=== PATIENT | female | born 1950 | race Caucasian/White ===

== ENCOUNTER 2019-09-25 10:43 | Emergency (ER) | payer MEDICARE, MEDICAID, SELFPAY ==
[2019-09-25 11:10] VITALS: BP 153/73; PULSE 78; RESP 18; TEMP 36.9; O2SAT 100
--- NOTE | 2019-09-25 11:26 | DI.RAD.S_ITS ---
PROCEDURE: XR SHOULDER RT MIN 2V INDICATIONS: swelling post fall, limited ROM TECHNIQUE: 2 views of the shoulder were acquired. COMPARISON: None. FINDINGS: Bones: Comminuted, displaced fracture of the right humeral head and neck. No dislocation. No suspicious bony lesions. Visualized ribs appear intact. Soft tissues: No suspicious soft tissue calcifications. IMPRESSION: Comminuted, displaced fracture of the right humeral head and neck. Dictated by: Norman Alexis M.D. on 09/25/2019 at 12:29 Approved by: Norman Alexis M.D. on 09/25/2019 at 12:30
--- NOTE | 2019-09-25 11:27 | DI.RAD.S_ITS ---
PROCEDURE: XR HUMERUS RT 2V INDICATIONS: swelling post fall, limited ROM TECHNIQUE: AP and lateral views of the humerus were acquired. COMPARISON: None. FINDINGS: Bones: Comminuted, displaced fracture of the humeral head and neck. No dislocations. No suspicious bony lesions. Soft tissues: No suspicious soft tissue calcifications. IMPRESSION: Comminuted, displaced fracture of the right humeral head and neck. Dictated by: Norman Alexis M.D. on 09/25/2019 at 12:29 Approved by: Norman Alexis M.D. on 09/25/2019 at 12:29
--- NOTE | 2019-09-25 11:54 | ED.UPPEXIN ---
HPI - Extremity Injury (Upper) General Chief Complaint: Extremity Injury, Upper Stated Complaint: fell last night R shoulder possible dislocation Time Seen by Provider: 09/25/19 11:46 Source: patient Mode of arrival: Ambulatory Limitations: no limitations History of Present Illness HPI narrative: This is a 68-year-old female comes to the emergency department complaint of right shoulder pain. Patient states she tripped over some of her small floor rugs at home and fell she thinks onto her shoulder but she also hit head she states she has little bit of bruising Um. She did not lose consciousness. Her significant other was present. She have a lot of pain initially so she went to bed and this morning had increased pain. She denies weakness numbness in the hand or right upper extremity she is not able to lift or move it. She denies any neck or back pain. No chest pain, shortness of breath. No nausea, no vomiting, no other GI or urinary symptoms. Patient states no aspirin or other blood thinners. Patient states she has a history of cirrhosis and hepatitis-C which has been on treated. She states that she takes medication for reflux but no other medications regularly. She states that she was told they thought it was secondary to infection. Patient also states she had duodenal ulcer that ?exploded? in the past. Related Data Previous Rx's Medication Instructions Recorded oxycodone 5 mg PO QID PRN #20 tab 09/25/19 Allergies Allergy/AdvReac Type Severity Reaction Status Date / Time Penicillins Allergy Verified 09/25/19 11:23 Review of Systems Review of Systems ROS Unobtainable: All systems reviewed & are unremarkable except as noted in HPI and below Patient History Medical History Advanced cirrhosis of liver (Acute) Social History Smoking Status: Current some day smoker Smoking Status: Current some day smoker alcohol intake frequency: 0-2 drinks per day Substance Use Type: does not use Exam Narrative Exam Narrative: GEN: Patient appears in mild distress. HEAD: Patient has mild ecchymosis of the left brow, no raccoon/Tang sign. NECK: Nontender, painless range of motion, trachea midline Negative Nexus criteria, there is no mid line tenderness, distracting injury, altered mental status, neuro deficit, recent EtOH. EYES: PERRLA, EOMI ENT: External inspection normal other than described above, trachea is midline, TM's are normal no hemotypanum, Nares are clear, no septal hematoma, no dental or oral injury, airway is normal and with normal occlusion, No bony tenderness RESP: Chest is nontender and has symmetric movement, no ecchymosis, breath sounds are normal no crackles, wheezes or rales CVS: Heart sounds are normal, no murmur noted, No JVD. ABG/GI: Nontender, soft, normal bowel sounds, no distention, no organomegaly, pelvic rock is negative NEURO: Oriented AOx3, neuro is grossly intact, sensation and motor is normal all 4 extremities moving, cranial nerves II through XII are intact, GCS is 15 PSYCH: Normal mood and affect SKIN: Intact, warm and dry, no crepitus and without decubitus BACK: No CVA tenderness, no vertebral tenderness, no step-off's, no crepitus EXT: Patient is tender over the left shoulder. She does have some deformity and swelling. No ecchymosis is appreciated. 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 2+ radial pulse bilaterally. Normal sensation throughout. Cap refill less than 2 seconds in all 10 fingers, hips are nontender, no pedal edema, normal color and temperature, normal range of motion of extremities with normal tendon exam except for left shoulder, 2+ pulses in all four extremities Initial Vital Signs Initial Vital Signs: Vital Signs Temperature 98.4 F 09/25/19 11:10 Pulse Rate 78 09/25/19 11:10 Respiratory Rate 18 09/25/19 11:10 Blood Pressure 153/73 H 09/25/19 11:10 Pulse Oximetry 100 09/25/19 11:10 Scores GCS [place] coma scale eye opening: Spontaneous [place] coma scale verbal response: Orientated [place] coma scale motor response: Obey commands [place] coma scale total score: 15 Course Orders Ordered: ED Orders 09/25/19 11:26 XR shoulder RT min 2V Stat 09/25/19 11:27 XR humerus RT 2V Stat Discontinued Medications Oxycodone HCl (Percolone) 5 mg PO NOW ONE Stop: 09/25/19 12:54 Last Admin: 09/25/19 13:12 Dose: 5 mg Documented by: YOSVANY Vital Signs Vital signs: Vital Signs - 8 hr 09/25/19 11:10 09/25/19 12:22 09/25/19 13:00 Temperature 98.4 F Pulse Rate 78 72 74 Pulse Rate [Right Radial] 78 Respiratory Rate 18 15 19 Blood Pressure 153/73 H Blood Pressure [Left Arm] 131/81 143/68 H Pulse Oximetry 100 98 MDM - Extremity Injury (Upper) Imaging Data right shoulder xray: Radiologist's Impression: [address] [address] XRay Report Signed Patient: Ariadna Williamson#: [id number] : [id number]:[id number] Age/Sex: 68 / FDate of Service: 09/25/19 Loc: ED Accession Number: [id number] Procedure: XR shoulder RT min 2V Ordering Provider: Mimi Tim D.O. PROCEDURE: XR SHOULDER RT MIN 2V INDICATIONS: swelling post fall, limited ROM TECHNIQUE: 2 views of the shoulder were acquired. COMPARISON: None. FINDINGS: Bones: Comminuted, displaced fracture of the right humeral head and neck. No dislocation. No suspicious bony lesions. Visualized ribs appear intact. Soft tissues: No suspicious soft tissue calcifications. IMPRESSION: Comminuted, displaced fracture of the right humeral head and neck. Dictated by: Norman Alexis M.D. on 09/25/2019 at 12:29 Approved by: Norman Alexis M.D. on 09/25/2019 at 12:30 humerus xray: Radiologist's Impression: [address] [address] XRay Report Signed Patient: Ariadna Williamson#: [id number] : [id number]:[id number] Age/Sex: 68 / FDate of Service: 09/25/19 Loc: ED Accession Number: [id number] Procedure: XR humerus RT 2V Ordering Provider: Mimi Tim D.O. PROCEDURE: XR HUMERUS RT 2V INDICATIONS: swelling post fall, limited ROM TECHNIQUE: AP and lateral views of the humerus were acquired. COMPARISON: None. FINDINGS: Bones: Comminuted, displaced fracture of the humeral head and neck. No dislocations. No suspicious bony lesions. Soft tissues: No suspicious soft tissue calcifications. IMPRESSION: Comminuted, displaced fracture of the right humeral head and neck. Dictated by: Norman Alexis M.D. on 09/25/2019 at 12:29 Approved by: Norman Alexis M.D. on 09/25/2019 at 12:29 [facility] Narrative Medical decision making narrative: SPoke with Dr. Vega, he recommends sling and swath with pain medication and follow-up with the office. No intervention at this time. They will follow with the patient. Discussed with patient she is comfortable with the plan strict return precautions. Discharge Plan Departure Patient Disposition: Home Clinical Impression: Closed right humeral fracture Qualifiers: Encounter type: initial encounter Discharge Date/Time: 09/25/19 13:45 Instructions: DI for Humeral Fracture Activity Restrictions/Additional Instructions: Follow-up with Orthopedic surgery in the next 5-7 days. Call for an appointment. Take pain medication as prescribed, this medication can make you sleepy do not drive, perform hazardous activities or make any major decisions while taking this medication. Splint Care: Keep splint clean and dry. Elevated affected body part to decrease swelling. OK to use ice pack on the affected body part. Use for 15-20 minutes each time, for 5-6x per day. If you develop worsening pain, numbness, tingling, discoloration of the affected body part, loosen or adjust the sling/splint, and either see your doctor for an urgent re-assessment, or return to the Emergency Department. Return to the Emergency Department for any new or worsening symptoms, altered mental status, new confusion, sudden severe headaches, persistent vomiting, lightheadedness or passing out, new neck, back pain, new numbness, tingling or weakness or other new or concerning symptoms. Prescriptions: New oxycodone 5 mg tablet 5 mg PO QID PRN (Reason: pain) Qty: 20 RF: 0 Referrals: Kamari Vega MD [Physician] -
[2019-09-25 12:22] VITALS: BP 131/81; PULSE 72; PULSE 78; RESP 15
--- NOTE | 2019-09-25 12:25 | PC.NURSE ---
Pt was walking last night and tripped over throw rug landing on right side. c/o right shoulder pain w/ visible bruising to posterior right shoulder. Pain w/ movement. Right arm in position of comfort at this time. Also noted a bruise to left eye area. Srinivasan LOC. Pt is not on thinners.
[2019-09-25 13:00] VITALS: BP 143/68; PULSE 74; RESP 19; O2SAT 98
[2019-09-25] MEDS: OXYCODONE IR 5 MG TABLET PO (13:12)
== END 2019-09-25 13:45 | disposition home or self-care (01) ==
PROVIDERS: Emergency Provider Emergency Medicine
DX: S42.301A Unspecified fracture of shaft of humerus, right arm, initial encounter for closed fracture (principal); W01.0XXA Fall on same level from slipping, tripping and stumbling without subsequent striking against object, initial encounter
CPT/HCPCS: 73030; 73060; 99283; 99284

== ENCOUNTER → 2022-05-26 12:12 | Outpatient (CLI) | payer MEDICARE, MEDICAID, SELFPAY ==
--- NOTE | 2022-05-26 12:16 | DI.MRI.S_ITS ---
PROCEDURE: MR BREAST BI WO/W CON INDICATIONS: Malignant neoplasm of unspecified site TECHNIQUE: The patient was placed prone in a dedicated breast imaging coil. Precontrast axial STIR and 3D FLASH without fat saturation sequences were obtained. Both before and after bolus injection of contrast, sequential 1-minute axial 3D FLASH with fat saturation sequences for 3 time points, with subtraction images and maximum intensity projections (MIP's) generated. Delayed sagittal FLASH images with fat saturation were also obtained. Computer-aided detection, including computer algorithm analysis of MRI image data for lesion detection and characterization, pharmacokinetic analysis, with further physician review for interpretation, was performed. COMPARISON: None. FINDINGS: Image quality: Degraded by motion artifact and suboptimal [id number]. In addition, the patient did not tolerate further imaging and sagittal views of the left breast were not acquired. There is mild background parenchymal enhancement. Right breast: There is an irregular mass with heterogeneous enhancement and irregular margins the 12 o'clock position the right breast measuring 17 x 14 x 9 millimeters, with internal biopsy clip, about 3 centimeters from the nipple. At the 7 o'clock position of the right breast about 5 centimeters from nipple, there is an irregular mass with heterogeneous enhancement and irregular margins measuring 13 x 12 x 14 millimeters. At the 10 o'clock position of the right breast about 2 centimeters from the nipple, there is an irregular mass with heterogeneous enhancement and regular margins measuring 13 x 10 x 8 millimeters. No suspicious internal mammary or axillary adenopathy is seen. Left breast: Limited evaluation due to lack of sagittal images and motion degradation. The patient did not tolerate further imaging. No suspicious mass, focus, or non mass enhancement is identified corresponding to previously noted group calcifications on mammogram. No suspicious axillary adenopathy is seen. Miscellaneous: Partially visualized non breast findings without significant pathology. Evaluation is limited as above. IMPRESSION: Suspected multi centric disease in the right breast. If confirmation is needed, second-look ultrasound could be used to target the 7 o'clock and/or to 10 o'clock masses. No suspicious findings in the left breast. No correlate seen to calcifications seen on mammography, which could not be targeted on prior stereotactic biopsy. Evaluation is degraded by motion artifact, suboptimal [id number] and lack of left breast sagittal images. BIRADS 6 COMMENT: The imaging literature indicates that a negative contrast breast MRI examination has a high sensitivity and a moderate specificity for detecting and excluding invasive carcinomas to a detection threshold of 3-5 mm; nonetheless, appropriate clinical and mammographic follow-up are recommended. MRI is not sensitive for detecting DCIS (ductal carcinoma in situ) and may not detect large invasive neoplasms that show only minimal enhancement such as mucinous carcinoma. If there are suspicious calcifications or clinically worrisome palpable masses, then biopsy should still be considered. Invasive neoplasms can be hidden by co-existent and benign enhancement caused by mastitis, hormone therapy effects, radiation therapy, , and recent biopsy or surgery. False positive examinations can occur in a number of circumstances, including breasts that have recently been subject to invasive procedures and those that contain atypical ductal hyperplasia, hormonally stimulated glandular tissue, fat necrosis, or radial scars. Dictated by: Ky Doe M.D. on 05/26/2022 at 16:24 Approved by: Ky Doe M.D. on 05/26/2022 at 16:39
== END ==
PROVIDERS: PCP Nurse Practitioner Family; Referring Provider Nurse Practitioner Family; Visit Provider Nurse Practitioner Family
DX: C50.919 Malignant neoplasm of unspecified site of unspecified female breast (principal); N63.15 Unspecified lump in the right breast, overlapping quadrants; N63.13 Unspecified lump in the right breast, lower outer quadrant; N63.11 Unspecified lump in the right breast, upper outer quadrant
CPT/HCPCS: 77049; A9579